=== PATIENT | male | born 1990 | race Caucasian/White ===

== ENCOUNTER 2016-07-14 15:14 | Emergency (ER) | payer SELFPAY ==
[~2016-07-14] VITALS: Ht 175.3 cm; Wt 61.4 kg
[2016-07-14 15:15] VITALS: BP 134/74; PULSE 77; RESP 20; TEMP 97.7; O2SAT 100
--- NOTE | 2016-07-14 15:50 | PD ---
HPI Chief Complaint: Injury Time Seen by Provider: 15:49 Travel History International Travel<30 days: No Contact w/Intl Traveler<30days: No Traveled to known affect area: No History of Present Illness HPI 26-year-old male presents to the emergency Department with complaint of left shoulder pain after a car rack slid off the car and hit him in the left shoulder today. Reports pain at the anterior and posterior aspect. Denies paresthesias, loss of sensation to the affected extremity. Reports decreased range of motion to the shoulder secondary to pain. Denies fever, chills, nausea , vomiting. Has not taken any medications or tried any treatments to alleviate his symptoms. Pain is aggravated with movement and palpation. No known relieving factors. Allergies to erythromycin, Toradol, tramadol. History of asthma as a child. No other modifying factors or associated signs and symptoms. PFSH Past Medical History Asthma: Yes (childhood) Social History Tobacco Use: No Allergies-Medications (Allergen,Severity, Reaction): Coded Allergies: Erythromycin (Verified Allergy, Unknown, 07/14/16) Toradol (Verified Allergy, Unknown, 07/14/16) Tramadol (Verified Allergy, Unknown, 07/14/16) Reported Meds & Prescriptions Reported Meds & Active Scripts Active Ibuprofen 800 Mg Tab 800 Mg PO Q6HR PRN Review of Systems Except as stated in HPI: all other systems reviewed are Neg Physical Exam Narrative GENERAL: Well-nourished, well-developed male patient, in no acute distress SKIN: Warm and dry. HEAD: Atraumatic. Normocephalic. EYES: Pupils equal and round. No scleral icterus. No injection or drainage. ENT: Mucosa pink and moist. Airway patent. NECK: Supple. Trachea midline. CARDIOVASCULAR: Regular rate. RESPIRATORY: No accessory muscle use. MUSCULOSKELETAL: Left shoulder without erythema, edema, ecchymosis; with tenderness on palpation to the anterior and posterior aspect; with abduction to approximately 45; no obvious deformity; shoulders are equal; joint stable. Tenderness elicited over the distal area of the left clavicle; no crepitance or deformity noted. Left upper extremity supple and non-tense with 2+ radial pulse and sensory intact and without erythema or edema. No obvious deformities. No clubbing. No cyanosis. No edema. NEUROLOGICAL: Awake and alert. Oriented 3. No obvious cranial nerve deficits. Motor grossly within normal limits. Normal speech. PSYCHIATRIC: Appropriate mood and affect; insight and judgment normal. Data Data Last Documented VS Vital Signs Date Time Temp Pulse Resp B/P Pulse Ox O2 Delivery O2 Flow Rate FiO2 07/14/16 15:15 97.7 77 20 134/74 100 Room Air Orders Shoulder, Complete (>2vws) (07/14/16 15:50) Ice/Cold Pack (07/14/16 15:50) Ibuprofen (Motrin) (07/14/16 16:00) MDM Medical Decision Making Medical Screen Exam Complete: Yes Emergency Medical Condition: Yes Medical Record Reviewed: Yes Differential Diagnosis Shoulder contusion, shoulder sprain, shoulder fracture, clavicle fracture Narrative Course 26-year-old male with left shoulder injury. Ibuprofen ordered. Left shoulder x -ray ordered. 1736: Left shoulder x-ray concludes Unremarkable examination of the left shoulder. Arm sling provided for support. Ibuprofen prescribed for home. Patient verbalizes understanding and agreement with treatment plan. Patient is medically cleared and stable for discharge. Discussed reasons to return to the emergency department. Instructed patient to follow up with primary care provider. Patient agrees with treatment plan. The patients vital signs are stable and the patient is stable for outpatient follow-up and treatment. Patient discharged home, stable and in no acute distress. Diagnosis Primary Impression: Contusion of left shoulder Qualified Code: S40.012A - Contusion of left shoulder, initial encounter Referrals: Primary Care Physician Patient Instructions: Contusion in Adults (ED), General Instructions Departure Forms: Tests/Procedures, Work Release Enter return to work date: Jul 19, 2016 Additional Instructions: Tylenol or ibuprofen as needed and as directed to reduce pain and inflammation Rest, ice, and compress extremity to decrease pain and inflammation Arm sling for support Avoid aggravating activity; increase activity as tolerated Follow-up with primary care provider Follow-up with orthopedics as needed Return to the emergency department immediately with worsening symptoms Med/Other Pt SpecificInfo: Prescription(s) given Scripts Ibuprofen 800 Mg [id number] Mg PO Q6HR PRN (PAIN) #30 TAB Ref 0 Prov:Stefanie Galvez 07/14/16 Disposition: 01 DISCHARGE HOME Condition: Stable Stefanie Galvez Jul 14, 2016 15:50
[2016-07-14] MEDS ORDERED: IBUPROFEN 800 MG TAB PO ONE (16:00)
[2016-07-14] MEDS ORDERED: IBUP800T23 PO (16:08)
--- NOTE | 2016-07-14 17:32 | RADRPT ---
EXAM DATE/TIME: 07/14/2016 16:31 [facility] COMPARISON: No previous studies available for comparison. INDICATIONS : Left shoulder pain; fell back on shoulder today. MEDICAL HISTORY : None. SURGICAL HISTORY : None. ENCOUNTER: Initial ACUITY: 1 day PAIN SCORE: 9/10 LOCATION: Left posterior shoulder. FINDINGS: Multiple view examination of the left shoulder demonstrates no evidence of fracture or dislocation. The glenohumeral and acromioclavicular joints are maintained. There is normal range of motion betwee n internal and external rotation. Bony mineralization is normal. CONCLUSION: Unremarkable examination of the left shoulder. Michael Garcia MD on July 14, 2016 at 17:30 Board Certified Radiologist. This report was verified electronically.
== END 2016-07-14 18:00 | disposition home or self-care (01) ==
LOC: NEPK 15:14
DX: S40.012A Contusion of left shoulder, initial encounter (principal); W20.8XXA Other cause of strike by thrown, projected or falling object, initial encounter
CPT/HCPCS: 29240; 73030